=== PATIENT | male | born 1970 | race Caucasian/White ===

== ENCOUNTER 2020-09-13 11:06 | Emergency (ER) | payer BC ==
[~2020-09-13] VITALS: Ht 188 cm; Wt 86.2 kg
[2020-09-13] MEDS ORDERED: CEPHALEXIN500 MG PO (11:58)
[2020-09-13 12:19] VITALS: BP 141/70
== END 2020-09-13 12:21 | disposition home or self-care (01) ==
LOC: M.ERS 11:06
DX: S61.217A Laceration without foreign body of left little finger without damage to nail, initial encounter (principal); W26.8XXA Contact with other sharp object(s), not elsewhere classified, initial encounter; Y93.89 Activity, other specified; Y92.89 Other specified places as the place of occurrence of the external cause; Y99.8 Other external cause status